=== PATIENT | female | born 1975 | race Caucasian/White ===

== ENCOUNTER → 2017-08-28 | Emergency (ER) | payer OTHER | END | disposition left against medical advice (07) | LOC: ER 11:47 | DX: Z53.20 Procedure and treatment not carried out because of patient's decision for unspecified reasons (principal) ==

== ENCOUNTER 2019-02-13 16:01 | Emergency (ER) | payer OTHER ==
[~2019-02-13] VITALS: Ht 152.4 cm; Wt 56.2 kg
[2019-02-13] MEDS ORDERED: LEVOTHYROXINE25 MCG (17:07)
== END 2019-02-13 20:04 | disposition home or self-care (01) ==
LOC: ER 16:01
DX: M54.5 Low back pain (principal)